=== PATIENT | male | born 1945 | race Caucasian/White ===

== ENCOUNTER 2019-02-05 08:28 | Inpatient (IN) | payer MEDICARE, BC ==
[~2019-02-05] VITALS: Ht 172.7 cm; Wt 64.4 kg
[~2019-02-05 08:28] MED LIST: ADULT ASPIRIN R81 MG PO; ASPER-FLEX85 GM TOP; ATORVASTATIN CA80 MG PO; BISACODYL10 MG RECTAL; CALCIUM 500 +1 EAC6 PO; CARBAMAZEPINE200 M5 PO; CORTISPORIN OIN15 GM TOP; DESITIN57 GM TOP; HUMALOG JU100 UNIT/1 SUBQ; LEVEMIR100 UNIT/1 SUBQ; LIDOCAINE5 GM TOP; MUPIROCIN15 GM TOP; NIZORAL120 ML TOP; TRAMADOL 50 MG50 MG PO; TYLENOL325 M1 PO; VITAMIN C500 M2 PO; VITAMIN D31000 UNIT PO; XARELTO20 MG PO
[2019-02-05 12:00] VITALS: BP 165/83
--- NOTE | 2019-02-05 12:50 | EKG ---
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
[2019-02-05 13:53] LABS: ABSOLUTE BASOPHILS 0.1 thou/uL (0.0-0.2); ABSOLUTE EOSINOPHILS 0.8 thou/uL (0.0-0.7); ABSOLUTE LYMPHOCYTES 1.5 thou/uL (0.8-5.3); ABSOLUTE MONOCYTES 1.2 thou/uL (0.0-1.2); ABSOLUTE NEUTROPHILS 7.3 thou/uL (1.6-8.1); BASOPHILS 1.2 %; EOSINOPHILS 7.4 %; HEMATOCRIT 49.1 % (42.0-52.0); HEMOGLOBIN 16.6 gm/dL (14.0-18.0); LYMPHOCYTES 14.1 %; MCH 31.3 pg (26.0-34.0); MCHC 33.8 g/dL (28.0-37.0); MCV 92.4 fL (80.0-100.0); NUCLEATED RBCS 0 /100WBC; PLATELET COUNT* 96 thou/uL (150-400); POLYS 66.3 %; RBC 5.31 mil/uL (4.50-6.00); RDW-CV 15.9 % (10.5-14.5); WBC 10.9 thou/uL (4.0-11.0)
[2019-02-05 13:59] LABS: CALCIUM 8.8 mg/dL (8.5-10.1); CREATININE 0.9 mg/dL (0.6-1.3); INR 1.2; POTASSIUM 4.4 mmol/L (3.5-5.1); PROTIME 12.4 Seconds (9.20-11.50)
[2019-02-05 14:22] LABS: PLATELET ESTIMATE DECREASED
[2019-02-05 20:27] VITALS: BP 136/82
[2019-02-06 00:43] VITALS: BP 122/75
[2019-02-06 04:07] VITALS: BP 116/66
[2019-02-06 09:34] VITALS: BP 126/68
[2019-02-06 20:46] VITALS: BP 138/67
[2019-02-07 07:44] VITALS: BP 132/55
[2019-02-07 16:00] VITALS: BP 125/57
[2019-02-07 21:27] VITALS: BP 155/69
[2019-02-08 08:00] VITALS: BP 144/71
[2019-02-08 12:39] VITALS: BP 144/71
[2019-02-08] MEDS ORDERED: ANECREAM530 GM TOP (13:14)
[2019-02-08 15:45] VITALS: BP 122/59
--- NOTE | 2019-02-10 13:07 | PATH ---
[address] [address] PATHOLOGY RPT PROCEDURE Name: MARLON FERRELL Room: [address] IN .R.#: [id number] Admission: 02/05/19 Date of : 41 Discharge: 02/08/19 Report #: [id number] Path Case #: [id number] [facility] Accession Number: [id number] . 01 Material submitted: . leg - LEFT ABOVE KNEE AMPUTATION. Modifiers: left . 01 Clinical history: . Non-healing foot ulcer left foot . 02 Diagnosis: Left leg above the knee, amputation: - Benign left lower extremity with nonspecific ulcerations and acute and chronic inflammation of soft tissues predominantly around second toe, and with focal osteomyelitis of underlying phalangeal bone. - Diffuse severe calcifying arteriosclerosis of popliteal, anterior tibial and posterior tibial arteries. . (GALLO:mmama; 02/09/2019) QLM 02/10/2019 1208 Local . 02 Electronically signed: . Clay Laguna MD, Pathologist NPI- [id number] . 01 Gross description: . The specimen is received fresh in a red biohazard bag, labeled "Marlon Ferrell, above knee amputation left leg". Received is a left iqvwm-ejn-idbl amputation specimen measuring 24.4 cm from heel to toe, 40.5 cm from heel to skin margin, and 53.9 cm from heel to femoral bone margin. The skin and soft tissue margins are viable. The knee joint is exposed through underlying soft tissue and is [place]. All five toes are present. The nail of the great toe is yellow-hernandez and severely thickened in appearance. The second toe displays a several pink-red to light brown lesions covering approximately 50% of the toe, ranging in size from 0.5 x 0.5 to 0.8 x 0.7 cm. Sectioning through toe 2, including underlying bone, is accomplished against minimal resistance. The foot is overall pink-red and slightly edematous in appearance. Sectioning through the dorsal aspect of the foot reveals yellow-hernandez, translucent soft tissue, as well as releases clear yellow fluid. Sectioning through the popliteal vasculature reveals patent to slightly stenosed lumens. Sectioning through the anterior and posterior tibial vasculatures reveals pinpoint lumens. The specimen is submitted representatively as follows: . A1 skin and soft tissue margin A2 bilingual sales representative sections of lesion from toe 2 A3-A4 bilingual sales representative horizontal cross-sections through toe 2, [place] [address] PATHOLOGY RPT PROCEDURE Name: MARLON FERRELL Room: [address] DIS IN M.R.#: [id number] Admission: 02/05/19 Date of : 41 Discharge: 02/08/19 Report #: [id number] Path Case #: [id number] A5 bilingual sales representative sections from dorsal aspect of foot to show underlying soft tissue A6 popliteal vasculature margin A7 anterior and posterior tibial vasculatures. (CAA; 02/08/2019) QAC/QAC 02/09/2019 1637 Local . 02 Pathologist provided ICD-10: M86.8X6, I70.212, L97.921 . 02 CPT . 894789, 089961 Specimen Comment: A courtesy copy of this report has been sent to [phone], [phone] Specimen Comment: [id number], Specimen Comment: Report sent to ,DR RUELAS / DR ALARCON Performed at: 01 [facility] [address], [place] [id number] MD Mikel Rivera MD Phone: [phone] Performed at: 02 [facility] [address], [place] [id number] MD Clay Laguna MD Phone: [phone]
--- NOTE | 2019-02-11 12:52 | OP ---
[facility] [address] [place] [address] OPERATIVE REPORT Name: MARIAELENA,MENDEL Mckenna Room: [address] IN M.R.#: [id number] Admission: 02/05/19 Attend Phys: Boubacar Chen Discharge: 02/08/19 Date of : 41 Report #: [id number] THIS REPORT FOR: //name// CC: Samuel Smith DATE OF SERVICE: 02/05/2019 PREOPERATIVE DIAGNOSES: Paralysis and peripheral vascular disease. POSTOPERATIVE DIAGNOSES: Paralysis and peripheral vascular disease. PROCEDURE: Left above knee amputation. SURGEON: Samuel Cobb MD ART OBJECTS SALESPERSON: BRENDEN Palumbo. COMPLICATIONS: None. ESTIMATED BLOOD LOSS: 250 mL. SPECIMEN: Includes left leg amputation. ANESTHESIA: General. COMPLICATIONS: None. 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 I previously performed a right above knee amputation for acute limb ischemia. The patient did very well from this. He did not have any pain. He has found it easier to transfer since his right knee amputation. He represented to me, requesting a left above-knee amputation as he feels that he will be able to mobilize much easier and his leg has been paralyzed and unusable for many, many years. I was in agreement that he would do well with an above-knee amputation from a functional standpoint as well as a quality of life. Informed consent was obtained with risks including but not limited to bleeding, infection, need for further surgery, pain, , heart attack, stroke, higher amputation. The patient understood these risks and was agreeable to proceed. DESCRIPTION OF PROCEDURE: The patient was taken to the OR and placed in supine position. After adequate general anesthesia was initiated, the left lower extremity was circumferentially prepped and draped in usual sterile fashion. Timeout was performed. I created a fishmouth incision on the left above-knee, [place] [address] OPERATIVE REPORT Name: MENDEL FERRELL Room: [address]#: [id number] Admission: 02/05/19 Attend Phys: Boubacar Chen Discharge: 02/08/19 Date of : 41 Report #: [id number]. Sharp and blunt dissection was carried down to the femur. Femur was divided with a bone saw. I oversewed the neurovascular bundle with 2-0 silk suture ligature. I used electrocautery, ties and clips to control bleeding. I irrigated the wound bed with antibiotic saline. I closed the wound in multiple layers using interrupted 2-0 Vicryl, running 3-0 Vicryl and imla for the skin. Incision was dressed with Prevena wound VAC. The patient tolerated the procedure well and was taken alert and awake to recovery room in good condition. <ELECTRONICALLY SIGNED> By: Samuel Cobb MD 02/11/19 1252 1433 [id number] Cobb MD /nt
== END 2019-02-08 18:05 | disposition short-term general hospital (02) | DRG 240 ==
LOC: M.PRE 08:28 → M.SUR 10:27 → EDSTATUS 10:27 → M.PRE 10:30 → M.3W 11:18 → M.TBA 11:18 → M.PRE 12:30 → M.ORTHSURG 16:22 → M.3W 02-06 15:57
PROVIDERS: Surgery Vascular Surgery; ADMIT Internal Medicine
PROC: 0Y6J0Z1 Detachment at Left Lower Leg, High, Open Approach (ICD-10-PCS; principal; 2019-02-05)
DX: E11.51 Type 2 diabetes mellitus with diabetic peripheral angiopathy without gangrene (principal); D68.59 Other primary thrombophilia; E11.621 Type 2 diabetes mellitus with foot ulcer; L97.529 Non-pressure chronic ulcer of other part of left foot with unspecified severity; G35 Multiple sclerosis; G83.9 Paralytic syndrome, unspecified; E78.5 Hyperlipidemia, unspecified; M19.90 Unspecified osteoarthritis, unspecified site; I48.91 Unspecified atrial fibrillation; N40.0 Benign prostatic hyperplasia without lower urinary tract symptoms; I10 Essential (primary) hypertension; G50.0 Trigeminal neuralgia; E11.65 Type 2 diabetes mellitus with hyperglycemia; Z89.611 Acquired absence of right leg above knee; Z88.8 Allergy status to other drugs, medicaments and biological substances; Z79.899 Other long term (current) drug therapy; Z79.82 Long term (current) use of aspirin; Z79.4 Long term (current) use of insulin; Z93.3 Colostomy status; Z87.440 Personal history of urinary (tract) infections; Z95.5 Presence of coronary angioplasty implant and graft